=== PATIENT | male | born 1960 | race Hispanic/Latino ===

== ENCOUNTER 2022-02-14 17:04 | Emergency (ER) | payer BC ==
[~2022-02-14] VITALS: Ht 175.3 cm; Wt 104.3 kg
[2022-02-14 17:16] VITALS: BP 183/97
[2022-02-14] MEDS ORDERED: PRED20TA3 PO (19:17)
[2022-02-14] MEDS ORDERED: ACET-66 PO (19:17)
[2022-02-14] MEDS ORDERED: ORPHENADRINE CITRATE 30 MG/ML ML IM ONE (19:30)
[2022-02-14] MEDS ORDERED: KETOROLAC 30MG VIAL (30MG/ML) IM ONE (19:30)
== END 2022-02-14 19:42 | disposition home or self-care (01) ==
LOC: EDH 17:04
DX: M25.511 Pain in right shoulder (principal); E11.9 Type 2 diabetes mellitus without complications; I10 Essential (primary) hypertension; E78.00 Pure hypercholesterolemia, unspecified; I21.9 Acute myocardial infarction, unspecified
CPT/HCPCS: 99284; 73030; 96372; J1885; J2360